=== PATIENT | female | born 1965 | race Two or more races ===

== ENCOUNTER 2022-11-09 01:30 | Emergency (ER) | payer OTHER ==
[~2022-11-09] VITALS: Ht 167.6 cm; Wt 104.3 kg
[2022-11-09] MEDS ORDERED: GLUMETZA500 MG (01:45)
[2022-11-09] MEDS ORDERED: COZAAR100 MG (01:46)
[2022-11-09] MEDS ORDERED: ALDACTONE25 MG (01:46)
[2022-11-09] MEDS ORDERED: PROTONIX40 MG (01:46)
[2022-11-09] MEDS ORDERED: REPATHA SU140 MG/1 M (01:47)
[2022-11-09] MEDS ORDERED: ZYRTEC10 M3 (01:47)
[2022-11-09] MEDS ORDERED: DECADRON (01:47)
== END 2022-11-09 04:48 | disposition home or self-care (01) ==
LOC: ER 01:30
DX: S60.512A Abrasion of left hand, initial encounter (principal); W55.01XA Bitten by cat, initial encounter; Y93.89 Activity, other specified; Y92.89 Other specified places as the place of occurrence of the external cause; E11.9 Type 2 diabetes mellitus without complications; Z79.84 Long term (current) use of oral hypoglycemic drugs

== ENCOUNTER 2022-12-10 16:14 | Emergency (ER) | payer OTHER ==
[~2022-12-10] VITALS: Ht 167.6 cm; Wt 104.3 kg
[~2022-12-10 16:14] MED LIST: ALDACTONE25 MG; COZAAR100 MG; DECADRON; GLUMETZA500 MG; PROTONIX40 MG; REPATHA SU140 MG/1 M; ZYRTEC10 M3
== END 2022-12-10 19:58 | disposition home or self-care (01) ==
LOC: ER 16:14
DX: H66.92 Otitis media, unspecified, left ear (principal); J02.9 Acute pharyngitis, unspecified; E11.9 Type 2 diabetes mellitus without complications; Z79.84 Long term (current) use of oral hypoglycemic drugs; I10 Essential (primary) hypertension